=== PATIENT | male | born 1950 | race African-American/Black ===

== ENCOUNTER 2021-08-19 11:41 | Inpatient (IN) ==
[2021-08-19 12:33] LABS: Basophils # 0.1 10*3/uL (0.0-0.2); Basophils % 0.5 % (0.0-0.8); Eosinophils # 0.2 10*3/uL (0.0-0.87); Eosinophils % 1.7 % (0.00-10.9); Hemoglobin 11.5 GM/DL (14.0-18.0); Immature Granulocytes % 0.2 %; Immature Granulocytes Absolute 0.02 #; Lymphocytes # 1.2 10*3/uL (1.4-4.0); Lymphocytes % 12.8 % (21.2-54.2); Mean Corpuscular HGB Conc 31.9 GM/DL (32-36); Mean Corpuscular Volume 88.9 FL (87-102); Mean Platelet Volume 10.9 FL (9.6-12.0); Monocytes % 5.5 % (1.7-12.7); Neutrophils % 79.3 % (38.7-73.9); Platelet Count 250 T/CUMM (130-400); Red Blood Count 4.05 MC/CUMM (3.8-5.5); Red Cell Distribution Width 13.6 % (9.3-17.3); White Blood Count 9.6 T/CUMM (4-12)
[2021-08-19] MEDS ORDERED: hydrALAZINE 20 MG/1 ML VIAL IV STA (12:33)
[2021-08-19 12:51] LABS: Albumin 4.1 G/DL (3.4-5.0); Bilirubin,Total 0.5 MG/DL (0.20-1.00); Calcium 9.2 MG/DL (8.5-10.1); Osmolality,Calculated 281.4 MOS/KG (273-304); Potassium 3.7 MMOL/L (3.5-5.1); Total Protein 6.5 G/DL (6.4-8.2)
[2021-08-19] MEDS ORDERED: hydrALAZINE 20 MG/1 ML VIAL IV PRN (13:20)
[2021-08-19] MEDS ORDERED: ONDANSETRON 4 MG/2 ML VIAL IV PRN ×3 (13:20→17:25)
[2021-08-19] MEDS ORDERED: DEXTROSE 50% 25 GM/50 ML SYRINGE IV PRN (13:20)
[2021-08-19] MEDS ORDERED: GLUCAGON 1 MG VIAL IM PRN (13:20)
[2021-08-19] MEDS ORDERED: MORPHINE 2 MG/1 ML SYRINGE IV PRN (13:20)
[2021-08-19] MEDS ORDERED: ONDANSETRON 4 MG/2 ML VIAL ONE ×2 (15:06→17:24)
[2021-08-19] MEDS ORDERED: propofoL 200 MG/20 ML VIAL IV ONE (15:06)
[2021-08-19] MEDS ORDERED: LIDOCAINE 2% 5 ML VIAL ONE (15:06)
[2021-08-19] MEDS ORDERED: fentaNYL 100 MCG/2 ML VIAL ONE (15:06)
[2021-08-19] MEDS ORDERED: KETOROLAC 30 MG/1 ML VIAL ONE (15:06)
[2021-08-19] MEDS ORDERED: SEVOFLURANE 1 UNIT/15 MINUTE INH ONE ×4 (15:06→16:40)
[2021-08-19] MEDS ORDERED: MIDAZOLAM 2 MG/2 ML VIAL ONE (15:06)
[2021-08-19] MEDS ORDERED: TRANEXAMIC ACID 1,000 MG/10 ML VIAL ONE ×2 (15:06→15:22)
[2021-08-19] MEDS ORDERED: DEXAMETHASONE 4 MG/1 ML VIAL ONE ×2 (15:06→15:18)
[2021-08-19] MEDS ORDERED: ACETAMINOPHEN INJ 1,000 MG/100 ML VIAL IV ONE (15:07)
[2021-08-19] MEDS ORDERED: BUPIVACAINE MPF 0.25% 30 ML VIAL ONE ×2 (15:18→15:27)
[2021-08-19] MEDS ORDERED: KETOROLAC 15 MG/1 ML VIAL IV PRN (15:33)
[2021-08-19] MEDS ORDERED: HYDROmorphone 2 MG/1 ML VIAL IV PRN ×2 (15:33→17:25)
[2021-08-19] MEDS ORDERED: MAGNESIUM HYDROXIDE SUSP 30 ML UDCUP PO PRN (15:33)
[2021-08-19] MEDS ORDERED: ceFAZolin 1,000 MG VIAL ONE (16:01)
[2021-08-19] MEDS ORDERED: LACTATED RINGERS 1,000 ML IV ONE (16:39)
[2021-08-19] MEDS ORDERED: hydrALAZINE 20 MG/1 ML VIAL ONE (16:40)
[2021-08-19] MEDS ORDERED: HYDROmorphone 2 MG/1 ML VIAL ONE (17:23)
[2021-08-19] MEDS: oxyCODONE/ACETAMINOPHEN 5-325 MG TABLET PO PRN (18:52)
[2021-08-19] MEDS ORDERED: INFLUENZA VIRUS VACCINE 0.5 ML SYRINGE IM ONE (19:15)
[2021-08-19] MEDS: LACTATED RINGERS 1,000 ML IV SCH (21:28)
[2021-08-20 04:52] LABS: Basophils % 0.1 % (0.0-0.8); Hematocrit 34.9 VOL% (42.0-52.0); Hemoglobin 11.1 GM/DL (14.0-18.0); Immature Granulocytes % 0.6 %; Immature Granulocytes Absolute 0.09 #; Lymphocytes % 5.9 % (21.2-54.2); Mean Corpuscular HGB Conc 31.8 GM/DL (32-36); Mean Corpuscular Volume 89.5 FL (87-102); Mean Platelet Volume 10.7 FL (9.6-12.0); Monocytes % 5.3 % (1.7-12.7); Neutrophils % 88.1 % (38.7-73.9); Platelet Count 236 T/CUMM (130-400); Red Cell Distribution Width 13.9 % (9.3-17.3); White Blood Count 16.2 T/CUMM (4-12)
[2021-08-20 05:06] LABS: Calcium 8.7 MG/DL (8.5-10.1); Osmolality,Calculated 283.4 MOS/KG (273-304); Potassium 4.5 MMOL/L (3.5-5.1)
[2021-08-20 05:31] LABS: Ferritin 518.8 ng/mL (26-388)
[2021-08-20] MEDS ORDERED: lisinopriL 10 MG TABLET PO SCH (09:00)
[2021-08-20] MEDS: PANTOPRAZOLE 40 MG TABLET PO SCH (09:02)
[2021-08-20] MEDS: ASPIRIN CHEW 81 MG TABLET PO SCH (09:02)
[2021-08-20] MEDS: LACTATED RINGERS 1,000 ML IV SCH (09:03)
[2021-08-20] MEDS: oxyCODONE/ACETAMINOPHEN 5-325 MG TABLET PO PRN ×2 (09:09→17:45)
[2021-08-20 18:08] LABS: Bilirubin,Urine Negative (Negative); Blood, Urine Negative (Negative); Glucose,Urine (UA) Negative (Negative); Ketones,Urine Negative (Negative); Mucus,Urine Occasional /LPF (Occasional); Nitrite,Urine Negative (Negative); Protein,Urine Negative; Squamous Epithelial Cell,Urine Occasional /HPF (0-10); Urine Appearance CLEAR (Clear); Urine Color Yellow (Yellow); Urine Specific Gravity 1.016 (1.001-1.035); Urine Urobilinogen < 2.0 EU/DL (<2.0)
[2021-08-20] MEDS: FERROUS SULFATE 325 MG TABLET PO SCH (20:08)
[2021-08-21 06:13] LABS: Basophils % 0.2 % (0.0-0.8); Eosinophils # 0.1 10*3/uL (0.0-0.87); Eosinophils % 0.7 % (0.00-10.9); Hematocrit 29.4 VOL% (42.0-52.0); Hemoglobin 9.6 GM/DL (14.0-18.0); Immature Granulocytes % 0.3 %; Immature Granulocytes Absolute 0.03 #; Lymphocytes # 1.5 10*3/uL (1.4-4.0); Lymphocytes % 14.6 % (21.2-54.2); Mean Corpuscular HGB Conc 32.7 GM/DL (32-36); Mean Corpuscular Volume 88.8 FL (87-102); Mean Platelet Volume 11.7 FL (9.6-12.0); Neutrophils % 77.2 % (38.7-73.9); Platelet Count 219 T/CUMM (130-400); Red Blood Count 3.31 MC/CUMM (3.8-5.5); Red Cell Distribution Width 14.1 % (9.3-17.3); White Blood Count 10.1 T/CUMM (4-12)
[2021-08-21 06:34] LABS: Calcium 8.7 MG/DL (8.5-10.1); Osmolality,Calculated 282.3 MOS/KG (273-304); Potassium 4.1 MMOL/L (3.5-5.1)
[2021-08-21] MEDS: FERROUS SULFATE 325 MG TABLET PO SCH (08:38)
[2021-08-21] MEDS: PANTOPRAZOLE 40 MG TABLET PO SCH (08:38)
[2021-08-21] MEDS: ASPIRIN CHEW 81 MG TABLET PO SCH (08:38)
[2021-08-21] MEDS ORDERED: lisinopriL 10 MG TABLET PO SCH (09:00)
[2021-08-21] MEDS: oxyCODONE/ACETAMINOPHEN 5-325 MG TABLET PO PRN (11:37)
[2021-08-21 11:49] VITALS: BP 175/54
== END 2021-08-21 15:00 | disposition home health service (06) | DRG 522 ==
LOC: N.ED 11:41 → N.EDINP 13:20 → SUATTDRO 13:20 → N.EDINP 14:50 → N.3E 15:03
PROVIDERS: ADMIT Phlebology; ATTEND Internal Medicine

== ENCOUNTER 2022-06-12 16:20 | Inpatient (IN) ==
[2022-06-12] MEDS ORDERED: SODIUM CHLORIDE 0.9% 1,000 ML IV STA (16:59)
[2022-06-12 17:35] LABS: Basophils # 0.1 10*3/uL (0.0-0.2); Basophils % 0.7 % (0.0-0.8); Eosinophils # 0.5 10*3/uL (0.0-0.87); Eosinophils % 5.8 % (0.00-10.9); Hematocrit 38.2 VOL% (42.0-52.0); Hemoglobin 12.5 GM/DL (14.0-18.0); Immature Granulocytes % 0.2 %; Immature Granulocytes Absolute 0.02 #; Lymphocytes # 1.6 10*3/uL (1.4-4.0); Lymphocytes % 16.6 % (21.2-54.2); Mean Corpuscular HGB Conc 32.7 GM/DL (32-36); Mean Corpuscular Volume 87.2 FL (87-102); Mean Platelet Volume 12.2 FL (9.6-12.0); Monocytes # 0.5 10*3/uL (0.11-0.8); Monocytes % 4.8 % (1.7-12.7); Neutrophils % 71.9 % (38.7-73.9); Platelet Count 182 T/CUMM (130-400); Red Blood Count 4.38 MC/CUMM (3.8-5.5); Red Cell Distribution Width 13.2 % (9.3-17.3); White Blood Count 9.3 T/CUMM (4-12)
[2022-06-12 17:36] LABS: Bilirubin,Total 0.4 MG/DL (0.20-1.00); Calcium 9.5 MG/DL (8.5-10.1); Osmolality,Calculated 278.4 MOS/KG (273-304); Potassium 3.4 MMOL/L (3.5-5.1)
[2022-06-12 17:41] LABS: PT Patient Result 10.6 SECS (10.1-12.1)
[2022-06-12] MEDS ORDERED: ASPIRIN 325 MG TABLET PO STA (18:15)
[2022-06-12 18:22] LABS: Mucus,Urine Occasional /LPF (Occasional); RBC,Urine 42 /HPF (0-4); Squamous Epithelial Cell,Urine Occasional /HPF (0-10)
[2022-06-12 18:23] LABS: Bilirubin,Urine Negative (Negative); Glucose,Urine (UA) Negative (Negative); Ketones,Urine Negative (Negative); Nitrite,Urine Negative (Negative); Protein,Urine 30 mg/dL (Negative); Urine Appearance Clear (Clear); Urine Color Yellow (Yellow); Urine Specific Gravity 1.025 (1.001-1.035); Urine pH 6.5 (4.5-8.0)
[2022-06-12 18:24] LABS: Blood, Urine Moderate mg/dL (Negative); Urine Urobilinogen 0.2 eU/dL (<2.0)
[2022-06-12] MEDS ORDERED: ONDANSETRON 4 MG/2 ML VIAL IV PRN (18:34)
[2022-06-12] MEDS ORDERED: DOCUSATE SODIUM 100 MG CAPSULE PO PRN (18:34)
[2022-06-12] MEDS ORDERED: ACETAMINOPHEN 325 MG TABLET PO PRN (18:34)
[2022-06-12] MEDS ORDERED: CLOPIDOGREL 75 MG TABLET PO STA (18:36)
[2022-06-12] MEDS ORDERED: cloNIDine 0.1 MG TABLET PO STA (18:40)
[2022-06-12] MEDS ORDERED: LABETALOL 20 MG/4 ML SYRINGE IV STA (18:40)
[2022-06-12] MEDS: hydrALAZINE 20 MG/1 ML VIAL IV PRN (20:15)
[2022-06-12] MEDS: SODIUM CHLORIDE 0.45% 1,000 ML IV SCH (20:19)
[2022-06-12] MEDS ORDERED: ROSUVASTATIN 20 MG TABLET PO SCH (21:00)
[2022-06-12] MEDS: lisinopriL 10 MG TABLET PO SCH (21:43)
[2022-06-12] MEDS: ENOXAPARIN 40 MG/0.4 ML SYRINGE SUBCUT SCH (21:47)
[2022-06-13 06:18] LABS: Basophils # 0.1 10*3/uL (0.0-0.2); Eosinophils # 0.6 10*3/uL (0.0-0.87); Eosinophils % 7.8 % (0.00-10.9); Hematocrit 33.3 VOL% (42.0-52.0); Hemoglobin 11.1 GM/DL (14.0-18.0); Immature Granulocytes % 0.1 %; Immature Granulocytes Absolute 0.01 #; Lymphocytes # 1.7 10*3/uL (1.4-4.0); Lymphocytes % 23.4 % (21.2-54.2); Mean Corpuscular HGB Conc 33.3 GM/DL (32-36); Mean Corpuscular Volume 85.4 FL (87-102); Monocytes # 0.5 10*3/uL (0.11-0.8); Monocytes % 6.4 % (1.7-12.7); Neutrophils % 61.3 % (38.7-73.9); Platelet Count 161 T/CUMM (130-400); Red Cell Distribution Width 13.3 % (9.3-17.3); White Blood Count 7.1 T/CUMM (4-12)
[2022-06-13 06:39] LABS: Calcium 8.5 MG/DL (8.5-10.1); Potassium 3.2 MMOL/L (3.5-5.1); Risk Ratio 2.8; VLDL Cholesterol 19.4 MG/DL
[2022-06-13] MEDS: lisinopriL 10 MG TABLET PO SCH ×2 (08:38→08:49)
[2022-06-13] MEDS: PANTOPRAZOLE 40 MG TABLET PO SCH ×2 (08:38→08:49)
[2022-06-13] MEDS: CLOPIDOGREL 75 MG TABLET PO SCH ×2 (08:39→08:48)
[2022-06-13] MEDS: hydrALAZINE 20 MG/1 ML VIAL IV PRN ×2 (08:47→16:40)
[2022-06-13] MEDS: POTASSIUM CHLORIDE 20 MEQ TABLET PO SCH ×2 (14:02→21:04)
[2022-06-13] MEDS: SODIUM CHLORIDE 0.45% 1,000 ML IV SCH (16:40)
[2022-06-13] MEDS ORDERED: lisinopriL 20 MG TABLET PO SCH (21:00)
[2022-06-13] MEDS ORDERED: DOXAZOSIN 1 MG TABLET PO SCH (21:00)
[2022-06-13] MEDS: ROSUVASTATIN 20 MG TABLET PO SCH (21:04)
[2022-06-13] MEDS: ENOXAPARIN 40 MG/0.4 ML SYRINGE SUBCUT SCH (21:04)
[2022-06-14] MEDS: hydrALAZINE 20 MG/1 ML VIAL IV PRN ×3 (04:23→19:58)
[2022-06-14 05:29] LABS: Basophils # 0.1 10*3/uL (0.0-0.2); Basophils % 0.6 % (0.0-0.8); Eosinophils # 0.4 10*3/uL (0.0-0.87); Eosinophils % 4.9 % (0.00-10.9); Hematocrit 35.6 VOL% (42.0-52.0); Hemoglobin 12.1 GM/DL (14.0-18.0); Immature Granulocytes % 0.2 %; Immature Granulocytes Absolute 0.02 #; Lymphocytes % 22.6 % (21.2-54.2); Mean Corpuscular Volume 85.4 FL (87-102); Mean Platelet Volume 11.6 FL (9.6-12.0); Monocytes # 0.5 10*3/uL (0.11-0.8); Monocytes % 5.6 % (1.7-12.7); Neutrophils % 66.1 % (38.7-73.9); Platelet Count 192 T/CUMM (130-400); Red Blood Count 4.17 MC/CUMM (3.8-5.5); Red Cell Distribution Width 13.2 % (9.3-17.3); White Blood Count 8.6 T/CUMM (4-12)
[2022-06-14 05:42] LABS: Calcium 8.8 MG/DL (8.5-10.1); Osmolality,Calculated 279.3 MOS/KG (273-304); Potassium 3.4 MMOL/L (3.5-5.1)
[2022-06-14] MEDS: CLOPIDOGREL 75 MG TABLET PO SCH (10:13)
[2022-06-14] MEDS: lisinopriL 20 MG TABLET PO SCH (10:13)
[2022-06-14] MEDS: MAGNESIUM CHLORIDE 64 MG TABLET PO SCH (10:13)
[2022-06-14] MEDS: POTASSIUM CHLORIDE 20 MEQ TABLET PO SCH ×2 (10:13→20:51)
[2022-06-14] MEDS: PANTOPRAZOLE 40 MG TABLET PO SCH (10:13)
[2022-06-14] MEDS: ENOXAPARIN 40 MG/0.4 ML SYRINGE SUBCUT SCH (20:51)
[2022-06-14] MEDS: ROSUVASTATIN 20 MG TABLET PO SCH (20:51)
[2022-06-14] MEDS ORDERED: DOXAZOSIN 1 MG TABLET PO SCH (21:00)
[2022-06-14] MEDS: OMEGA 3 ACID ETHYL ESTERS 1 GM CAPSULE PO SCH (21:12)
[2022-06-15 04:45] LABS: Basophils # 0.1 10*3/uL (0.0-0.2); Basophils % 0.6 % (0.0-0.8); Eosinophils # 0.6 10*3/uL (0.0-0.87); Eosinophils % 6.9 % (0.00-10.9); Hematocrit 37.8 VOL% (42.0-52.0); Hemoglobin 12.6 GM/DL (14.0-18.0); Immature Granulocytes % 0.3 %; Immature Granulocytes Absolute 0.02 #; Lymphocytes # 1.5 10*3/uL (1.4-4.0); Mean Corpuscular HGB Conc 33.3 GM/DL (32-36); Mean Corpuscular Volume 86.1 FL (87-102); Mean Platelet Volume 12.4 FL (9.6-12.0); Monocytes # 0.5 10*3/uL (0.11-0.8); Monocytes % 6.1 % (1.7-12.7); Neutrophils % 67.1 % (38.7-73.9); Platelet Count 190 T/CUMM (130-400); Red Blood Count 4.39 MC/CUMM (3.8-5.5); Red Cell Distribution Width 13.2 % (9.3-17.3); White Blood Count 7.9 T/CUMM (4-12)
[2022-06-15 05:00] LABS: Calcium 8.8 MG/DL (8.5-10.1); Osmolality,Calculated 280.3 MOS/KG (273-304); Potassium 3.9 MMOL/L (3.5-5.1)
[2022-06-15] MEDS: lisinopriL 20 MG TABLET PO SCH (09:23)
[2022-06-15] MEDS: CLOPIDOGREL 75 MG TABLET PO SCH (09:23)
[2022-06-15] MEDS: OMEGA 3 ACID ETHYL ESTERS 1 GM CAPSULE PO SCH ×2 (09:23→21:24)
[2022-06-15] MEDS: MAGNESIUM CHLORIDE 64 MG TABLET PO SCH (09:23)
[2022-06-15] MEDS: POTASSIUM CHLORIDE 20 MEQ TABLET PO SCH (09:23)
[2022-06-15] MEDS: PANTOPRAZOLE 40 MG TABLET PO SCH (09:23)
[2022-06-15] MEDS: hydrALAZINE 20 MG/1 ML VIAL IV PRN (09:54)
[2022-06-15] MEDS ORDERED: DOXAZOSIN 1 MG TABLET PO ONE (14:49)
[2022-06-15] MEDS: ROSUVASTATIN 20 MG TABLET PO SCH (21:23)
[2022-06-15] MEDS: ENOXAPARIN 40 MG/0.4 ML SYRINGE SUBCUT SCH (21:24)
[2022-06-16 04:50] LABS: Basophils % 0.6 % (0.0-0.8); Eosinophils # 0.5 10*3/uL (0.0-0.87); Eosinophils % 7.7 % (0.00-10.9); Hematocrit 35.7 VOL% (42.0-52.0); Hemoglobin 11.9 GM/DL (14.0-18.0); Immature Granulocytes % 0.3 %; Immature Granulocytes Absolute 0.02 #; Lymphocytes # 1.5 10*3/uL (1.4-4.0); Lymphocytes % 20.9 % (21.2-54.2); Mean Corpuscular HGB Conc 33.3 GM/DL (32-36); Mean Corpuscular Volume 87.3 FL (87-102); Mean Platelet Volume 11.3 FL (9.6-12.0); Monocytes # 0.4 10*3/uL (0.11-0.8); Monocytes % 6.3 % (1.7-12.7); Neutrophils % 64.2 % (38.7-73.9); Platelet Count 178 T/CUMM (130-400); Red Blood Count 4.09 MC/CUMM (3.8-5.5); Red Cell Distribution Width 13.3 % (9.3-17.3)
[2022-06-16 05:09] LABS: Calcium 9.2 MG/DL (8.5-10.1); Potassium 4.2 MMOL/L (3.5-5.1)
[2022-06-16] MEDS: lisinopriL 20 MG TABLET PO SCH (09:53)
[2022-06-16] MEDS: OMEGA 3 ACID ETHYL ESTERS 1 GM CAPSULE PO SCH ×2 (09:53→21:01)
[2022-06-16] MEDS: MAGNESIUM CHLORIDE 64 MG TABLET PO SCH (09:53)
[2022-06-16] MEDS: PANTOPRAZOLE 40 MG TABLET PO SCH (09:54)
[2022-06-16] MEDS: CLOPIDOGREL 75 MG TABLET PO SCH (09:54)
[2022-06-16] MEDS: hydrALAZINE 10 MG TABLET PO SCH ×2 (17:37→21:01)
[2022-06-16] MEDS: ENOXAPARIN 40 MG/0.4 ML SYRINGE SUBCUT SCH (21:01)
[2022-06-16] MEDS: ROSUVASTATIN 20 MG TABLET PO SCH (21:01)
[2022-06-17 04:48] LABS: Basophils # 0.1 10*3/uL (0.0-0.2); Basophils % 0.8 % (0.0-0.8); Eosinophils # 0.7 10*3/uL (0.0-0.87); Eosinophils % 9.5 % (0.00-10.9); Hematocrit 35.2 VOL% (42.0-52.0); Hemoglobin 11.7 GM/DL (14.0-18.0); Immature Granulocytes % 0.3 %; Immature Granulocytes Absolute 0.02 #; Lymphocytes # 1.7 10*3/uL (1.4-4.0); Lymphocytes % 21.9 % (21.2-54.2); Mean Corpuscular HGB Conc 33.2 GM/DL (32-36); Mean Corpuscular Volume 86.5 FL (87-102); Mean Platelet Volume 11.5 FL (9.6-12.0); Monocytes # 0.4 10*3/uL (0.11-0.8); Monocytes % 5.2 % (1.7-12.7); Neutrophils % 62.3 % (38.7-73.9); Platelet Count 169 T/CUMM (130-400); Red Blood Count 4.07 MC/CUMM (3.8-5.5); Red Cell Distribution Width 13.3 % (9.3-17.3); White Blood Count 7.5 T/CUMM (4-12)
[2022-06-17 05:09] LABS: Calcium 8.8 MG/DL (8.5-10.1)
[2022-06-17] MEDS: PANTOPRAZOLE 40 MG TABLET PO SCH (09:07)
[2022-06-17] MEDS: CLOPIDOGREL 75 MG TABLET PO SCH (09:08)
[2022-06-17] MEDS: lisinopriL 20 MG TABLET PO SCH (09:08)
[2022-06-17] MEDS: MAGNESIUM CHLORIDE 64 MG TABLET PO SCH (09:09)
[2022-06-17] MEDS: OMEGA 3 ACID ETHYL ESTERS 1 GM CAPSULE PO SCH ×2 (09:09→21:05)
[2022-06-17] MEDS: ROSUVASTATIN 20 MG TABLET PO SCH (21:05)
[2022-06-17] MEDS: ENOXAPARIN 40 MG/0.4 ML SYRINGE SUBCUT SCH (21:05)
[2022-06-18 04:35] LABS: Basophils # 0.1 10*3/uL (0.0-0.2); Basophils % 0.9 % (0.0-0.8); Eosinophils # 0.9 10*3/uL (0.0-0.87); Eosinophils % 11.3 % (0.00-10.9); Hematocrit 35.9 VOL% (42.0-52.0); Hemoglobin 11.9 GM/DL (14.0-18.0); Immature Granulocytes % 0.1 %; Immature Granulocytes Absolute 0.01 #; Lymphocytes # 1.7 10*3/uL (1.4-4.0); Mean Corpuscular HGB Conc 33.1 GM/DL (32-36); Mean Corpuscular Volume 86.1 FL (87-102); Mean Platelet Volume 11.5 FL (9.6-12.0); Monocytes # 0.5 10*3/uL (0.11-0.8); Monocytes % 6.3 % (1.7-12.7); Neutrophils % 59.4 % (38.7-73.9); Platelet Count 180 T/CUMM (130-400); Red Blood Count 4.17 MC/CUMM (3.8-5.5); Red Cell Distribution Width 13.2 % (9.3-17.3); White Blood Count 7.6 T/CUMM (4-12)
[2022-06-18 04:51] LABS: Calcium 8.7 MG/DL (8.5-10.1); Potassium 3.9 MMOL/L (3.5-5.1)
[2022-06-18 05:00] LABS: Atypical Lymphocytes Few; Eosinophils 8 % (0-10); Lymphocytes 22 % (20-55); Total Cells Counted 100
[2022-06-18 05:01] LABS: Hypochromia Slight; Microcytosis Slight; Platelet Estimate Adequate
[2022-06-18] MEDS: OMEGA 3 ACID ETHYL ESTERS 1 GM CAPSULE PO SCH (08:56)
[2022-06-18] MEDS: PANTOPRAZOLE 40 MG TABLET PO SCH (08:56)
[2022-06-18] MEDS: CLOPIDOGREL 75 MG TABLET PO SCH (08:56)
[2022-06-18] MEDS: MAGNESIUM CHLORIDE 64 MG TABLET PO SCH (08:56)
[2022-06-18 12:18] VITALS: BP 169/102
[2022-06-18] MEDS: lisinopriL 20 MG TABLET PO SCH (14:14)
== END 2022-06-18 14:11 | DRG 65 ==
LOC: N.ED 16:20 → N.EDINP 16:20 → N.2W 19:59 → N.TELEN 06-13 16:35
PROVIDERS: ADMIT Hospitalist; ATTEND Hospitalist